=== PATIENT | male | born 1970 | race Caucasian/White ===

== ENCOUNTER → 2020-10-17 | Outpatient (CLI) | payer OTHER ==
[~2020-10-17] VITALS: Ht 182.9 cm; Wt 79.4 kg
[~2020-10-17] MED LIST: ALFALFA600 MG PO; FISH OIL 1,0001 EAC9 PO; LAXATIVE5 M1 PO; MULTI VITAMIN1 EACH PO; SINGULAIR 10 MG10 MG PO; VITAMIN C500 M1 PO
--- NOTE | ~2020-10-17 | P ---
[facility] [place] [address] PROCEDURE REPORT Name: GEOVANY RAHMAN Room #: REG SHAGUFTAÁngel Pate#: [id number] Admission: 10/17/20 Attend Phys: Yvon Braswell Discharge: Date of : 68 Report #: [id number] THIS REPORT FOR: cc: Kun Jones MD, John R. MD McElhinney, Christian C. MD ~ cc: Kun Jones MD DATE OF SERVICE: 10/17/2020 PROCEDURE PERFORMED: Colonoscopy with biopsies. HISTORY OF PRESENT ILLNESS: The patient is a 50-year-old male who underwent a recent Cologuard testing that was positive. He denies any symptoms, no family history of colon cancer, no previous history of screening colonoscopy. DESCRIPTION OF PROCEDURE: The risks and benefits of the procedure were explained to the patient, those risks including but not limited to bleeding, perforation and the risk of sedation. He understood these risks and gave me informed consent. Sedation was given using propofol per Anesthesia. Next, a digital rectal exam was initially performed, which was normal. Next, using a standard Olympus colonoscope, the scope was placed in the patient's anus and advanced under direct vision to the cecum. The overall prep was good. The cecum and ileocecal valve were normal in appearance. The ascending, transverse and descending colon were normal. In the distal sigmoid colon, a 4 mm sessile polyp was noted. This was removed with cold forceps, otherwise normal. The rectal mucosa was normal. On retroflexion, small internal hemorrhoid was noted. The scope was then withdrawn and the procedure terminated. The patient tolerated the procedure well. IMPRESSION: 1. Small colonic polyp. 2. Small internal hemorrhoids. 3. Otherwise, normal colonoscopy. RECOMMENDATIONS: 1. Await biopsy results. 2. If polyp is hyperplastic repeat in 10 years, if adenomatous polyp repeat in 5 years. Thank you for allowing me to participate in his care. By: [id number] Yvon Ledesma MD /nt
--- NOTE | 2020-10-20 16:06 | PATH ---
[facility] [place] [address] PATHOLOGY RPT PROCEDURE Name: GEOVANY RAHMAN Room #: REG JOHANNA Suggs.#: [id number] Admission: 10/17/20 Date of : 68 Discharge: Report #: [id number] Path Case #: [id number] [facility] Accession Number: [id number] . 01 Material submitted: . sigmoid colon - SIGMOID COLON POLYP . 01 Clinical history: . POSITIVE COLOGUARD COLON POLYP COLONOSCOPY . 02 Diagnosis: A. Polyp, Sigmoid colon polyp, endoscopic biopsy: - Hyperplastic polyp. - Negative for dysplasia. (IUV: 10/20/2020) QTP 10/20/2020 1255 Local . 02 Electronically signed: . Ambar Alexander MD, Pathologist NPI- [id number] . 01 Gross description: . The specimen is submitted in formalin, labeled "Hammad, Geovany, sigmoid colon polyp". Received are 2 segments of pale machado tissue ranging in size from 0.3 to 0.4 cm in maximum dimensions. The specimen is submitted in cassette A1. ([facility]; 10/17/2020) NRI/NRI 10/17/2020 1717 Local . 02 Pathologist provided ICD-10: K63.5 . 02 CPT . 550201 Specimen Comment: A courtesy copy of this report has been sent to [phone] Specimen Comment: Report sent to DR. CHRISTY Performed at: [address], [place] [id number] MD Krishna Gerber MD Phone: [phone] Performed at: [address] [id number] MD Ambar Alexander MD Phone: [phone]
== END | disposition home or self-care (01) ==
LOC: GI 08:56
PROVIDERS: ATTEND Specialist
DX: R19.5 Other fecal abnormalities (principal); K63.5 Polyp of colon; K64.8 Other hemorrhoids; Z98.890 Other specified postprocedural states; Z79.899 Other long term (current) drug therapy
CPT/HCPCS: 62110; 62900